=== PATIENT | male | born 1985 | race Caucasian/White ===

== ENCOUNTER 2020-03-05 21:52 | Emergency (ER) | payer OTHER ==
[~2020-03-05] VITALS: Ht 162.6 cm; Wt 63.5 kg
[2020-03-05 23:39] VITALS: BP 139/90
[2020-03-06] MEDS ORDERED: TETANUS-DIPTH-ACEL PERTUSSIS 0.5ML SYR Tdap IM ONE (02:00)
== END 2020-03-06 02:22 | disposition home or self-care (01) ==
LOC: ER 21:52
DX: S61.012A Laceration without foreign body of left thumb without damage to nail, initial encounter (principal); X58.XXXA Exposure to other specified factors, initial encounter; Y93.89 Activity, other specified; Y92.89 Other specified places as the place of occurrence of the external cause; Y99.8 Other external cause status
CPT/HCPCS: 12002; 73130; 90471; 90715

== ENCOUNTER 2020-03-08 14:22 | Emergency (ER) | payer OTHER ==
[~2020-03-08] VITALS: Ht 162.6 cm; Wt 63.5 kg
[2020-03-08 15:33] VITALS: BP 124/70
== END 2020-03-08 16:14 | disposition home or self-care (01) ==
LOC: ER 14:22
DX: Z48.00 Encounter for change or removal of nonsurgical wound dressing (principal)